=== PATIENT | female | born 1990 | race Caucasian/White ===

== ENCOUNTER 2021-01-19 19:59 | Emergency (ER) | payer MEDICAID, SELFPAY ==
[2021-01-19 20:01] VITALS: BP 134/113; PULSE 115; RESP 18; TEMP 36.7; O2SAT 99; BMI 43.0
[2021-01-19 20:08] VITALS: O2SAT 99
--- NOTE | 2021-01-19 20:08 | EKG12_ITS ---
Test Reason : PALPITATIONS Blood Pressure : / mmHG Vent. Rate : 098 BPM Atrial Rate : 098 BPM P-R Int : 172 ms QRS Dur : 086 ms QT Int : 354 ms P-R-T Axes : 051 014 039 degrees QTc Int : 451 ms Normal sinus rhythm Normal ECG Confirmed by DOUGLAS MARLEY, GILBERT ([id number]), staff editor ALEXANDREA ALVARENGA ([id number]) on 01/21/2021 9:33:39 AM Referred By: ADIN Confirmed By:LEVI COLE MD
--- NOTE | 2021-01-19 20:09 | ED.DCSUM_ITS ---
- ER Visit Summary Date of Service: 01/19/21 Chief Complaint: [Chest pain] History of Present Illness: The patient is a 30 F [presents to the emergency department with chest heaviness that started out an hour ago. Patient states that she was standing outside watching people play football when she started f eeling like she had brain fog and began feeling short of breath and dizzy and developed numbness in her chest and a chest heaviness. Patient was feeling so bad that she called the squad. She presents via EMS. Patient states that she was recently diagnosed with a UTI and started Macrobid this morning. After first dose patient states that she got nauseated and had upset stomach related to it. Patient has no heart history. Patient is a recovering drug addict. She has been a heavy drinker for about a year and her last drink was yesterday. Patient did also use a THC gummy today. Patient does have history of anxiety. Patient denies recent travel or surgery.] Physical Examination: [HEENT-PERRLA, EOMI. Cranial nerves II through XII grossly intact. TMs clear. Mucous membranes moist. No adenopathy. Cardiovascular-regular rate and rhythm without murmur or ectopy Lungs-clear to auscultation, chest wall stable without crepitus or subcu emphysema Abdomen-normoactive bowel sounds, soft, nontender, no rebound or rigidity, no peritoneal signs. Extremities-intact ?4, normal range of motion, normal pulses, atraumatic] Test Results: [EKG obtained arrival shows sinus rhythm with a ventricular rate of 98 bpm with no acute ST segment changes. CBC with it was normal. Chemistries normal. Troponin was less than 0.015. D-dimer was 0.45. Chest x- ray 1 view obtained interpreted by myself as no acute disease process although she was noted to have a elevated left hemidiaphragm. Radiology in agreement.] Emergency Department Course and Treatment: [IV line established on arrival. Patient placed on a cardiac cath technologist. Patient was given Toradol 30 mg IV.] Etiology of patient's symptoms unclear although I suspect there may be an anxiety component. Treatment Plan: [Patient to follow-up with her primary care physician within next 3 to 5 days. She will be given a prescription for Zofran.] Disposition: [Discharged home in stable condition] Impression: [Chest pain-etiology uncertain ] This note was generated with Dragon dictation software. It may contain incorrect words, spelling, and punctuation that were not noted in review of the chart prior to signing ED Disposition - Plan for ED Patient: Referrals: NOT,DEFINED [NON-STAFF] -
[2021-01-19 20:13] VITALS: BP 134/113; PULSE 98; RESP 16; O2SAT 99
--- NOTE | 2021-01-19 20:15 | ED.RN ---
NO OLD EKGS IN MUSE
[2021-01-19] MEDS: Aspirin 81 MG TAB.CHEW 324 MG PO (20:19)
[2021-01-19 20:22] VITALS: BP 151/106; PULSE 108; RESP 16; O2SAT 99
[2021-01-19] MEDS: 0.9% Normal Saline 1,000 ML 150 ML IV (20:55)
[2021-01-19 21:05] LABS: Absolute Lymphocyte Count 1.92 X10^3/uL (0.83-4.51); Absolute Neutrophil Count 7.9 X10^3/uL (2.0-7.7); Basophil# 0.01 X10^3/uL; Basophil% 0.1 % (0-1); Eosinophil# 0.04 X10^3/uL; Eosinophils% 0.4 % (0-5); Hematocrit 39.3 % (37-47); Hemoglobin 12.9 g/dL (12.0-15.0); Lymphocyte # 1.92 X10^3/ul (4.0); Lymphocyte % 18.1 % (19-41); Mean Corp Hgb Conc 32.8 g/dL (32-36); Mean Corpuscular Hgb 31.2 pg (27.0-32.0); Mean Corpuscular Volume 94.9 fL (81-99); Mean Platelet Vol. 10.4 fl (6.2-12.0); Monocyte# 0.69 X10^3/uL; Monocyte% 6.5 % (0-10); NRBC Flagged by Analyzer 0 % (0-5); Neutrophil # 7.91 X10^3/uL (2.7-7.7); Neutrophil % 74.5 % (47-70); Platelet Count 256 K/mm3 (150-450); RBC Distribution Width SD 44.6 fl (35.1-43.9); Red Blood Count 4.14 M/mm3 (4.2-5.4); White Blood Count 10.6 K/mm3 (4.4-11.0)
--- NOTE | 2021-01-19 21:21 | RAD_ITS ---
INDICATION: chest pain EXAMINATION/TECHNIQUE: X-RAY - XR Chest 1 View COMPARISON: None. FINDINGS: The lungs are clear. The cardiomediastinal silhouette is unremarkable. Elevation of the left hemidiaphragm. No pleural effusion or pneumothorax. No acute osseous abnormalities. RAD/Chest 1 View (Portable) IMPRESSION: No acute radiographic abnormalities. Electronically Signed: Neil Ortega MD at 21:46 EDT Tel , Service support ,
[2021-01-19 21:33] LABS: Anion Gap 7 (5-15); BUN 14 mg/dL (7-18); BUN/Creat Ratio 17.6 RATIO (10-20); Calcium,Total 9.3 mg/dL (8.5-10.1); Chloride 103 mmol/L (98-107); Creatinine, Serum 0.79 mg/dL (0.55-1.02); EST Glomerular Filtration Rate 89 mL/min (>60); Est Glom Filt Rate - Afr Amer 107 mL/min (>60); Estimated Creatinine Clearance 103.13 ml/min; Glucose 89 mg/dL (74-106); Potassium 3.2 mmol/L (3.5-5.1); Sodium Level 137 mmol/L (136-145)
[2021-01-19 21:43] LABS: D-Dimer Quantitative (DVT/PE) 0.45 FEU/ug/m (0.27-0.49)
--- NOTE | 2021-01-19 21:54 | ED.DEP ---
ED Disposition - Plan for ED Patient: Instructions: ED Chest Pain, Uncertain Cause Prescriptions: Ondansetron [Zofran Odt] 4 mg PO Q8H PRN PRN #10 tablet PRN Reason: Nausea Prescription Printed Referrals: NOT,DEFINED [NON-STAFF] - 3-5 Days
[2021-01-19] MEDS: Ketorolac 30 MG/ML Syringe IV (21:58)
[2021-01-19 22:00] VITALS: BP 119/101; PULSE 90; RESP 16; O2SAT 98
[2021-01-19 22:01] VITALS: BP 165/120; PULSE 87; RESP 18; O2SAT 98
== END 2021-01-19 22:28 | disposition home or self-care (01) ==
PROVIDERS: Emergency Provider Emergency Medicine
DX: R07.9 Chest pain, unspecified (principal); Z87.440 Personal history of urinary (tract) infections; N39.0 Urinary tract infection, site not specified
CPT/HCPCS: 71045; 80048; 84484; 85025; 85379; 93005; 96361; 96374; 99285; J7030; A4216